=== PATIENT | female | born 1985 | race Caucasian/White ===

== ENCOUNTER → 2016-09-07 | Outpatient (CLI) | payer MEDICAID ==
--- NOTE | 2016-09-07 09:44 | US ---
Transabdominal and Transvaginal Pelvic Ultrasound History: 30-year-old with endometriosis, amenorrhea. Comparison: CT abdomen pelvis March 17, 2005. Findings: Transabdominal: The uterus and ovaries are poorly visualized. The bladder is decompressed. Transvaginal: There is no visible fibroid. Portions of the uterus are difficult to visualize due to u terine positioning and body habitus. The uterus measures 4.8 x 3.1 x 3.2 cm. The visible endometrium is homogeneous and measures 4 mm. The left ovary measures 1.9 x 1.1 x 1.9 cm. The right ovary measure s 2.5 x 1.1 x 2.6 cm. No adnexal masses are identified. Normal arterial blood flow is documented to both ovaries by Doppler ultrasound. There is no free fluid. Impression: Normal pelvic ultrasound.
== END ==
LOC: CIMAGING 08:39
PROVIDERS: ATTEND General Practice
DX: N80.9 Endometriosis, unspecified (principal); N91.2 Amenorrhea, unspecified
CPT/HCPCS: 76856-PO

== ENCOUNTER 2017-01-08 18:59 | Emergency (ER) | payer MEDICAID ==
[2017-01-08 19:15] VITALS: BP 145/83; PULSE 99; RESP 18; TEMP 98.2; O2SAT 97
[2017-01-08] MEDS ORDERED: ACETAMINOPHEN 160 MG/5 ML UDCUP PO ONE (19:30)
[2017-01-08] MEDS ORDERED: ACETAMINOPHEN 500 MG TAB PO ONE (19:35)
--- NOTE | 2017-01-08 19:41 | EDPHY ---
H & P HPI/ROS: CHIEF COMPLAINT: Finger pain History by patient HISTORY OF PRESENT ILLNESS: 31-year-old woman presents complaining of pain in her left index and middle finger tips after falling off a horse sustaining a superficial laceration to her left index finger. She says it is hard to bend at the PIP joint due to pain. Her last tetanus shot was 5 years ago. She denies hitting her head or other pain or injury from the fall. REVIEW OF SYSTEMS: As in HPI, and all other systems reviewed and are negative Smoking Status: Never smoked Physical Exam: General Appearance: Alert and no distress. Eyes: Pupils equal and round no injection. Musculoskeletal: Neck is supple and nontender. Extremities: Positive superficial laceration at radial edge of left index finger nail, positive tenderness to tip of left index finger with mild swelling , cap refill less than 2 seconds, sensation intact, positive tenderness at the tip of right middle finger, mild swelling, cap refill less than 2 seconds, distal sensation intact, decreased range of motion of middle index finger secondary to pain. Skin: No rashes or lesions. Neuro: Awake alert oriented x3, normal gait, no motor sensory deficits Constitutional: Initial Vital Signs Temperature (C) 36.8 C 01/08/17 19:11 Heart Rate 99 01/08/17 19:11 Respiratory Rate 18 01/08/17 19:11 Blood Pressure 145/83 H 01/08/17 19:11 O2 Sat (%) 97 01/08/17 19:11 O2 Delivery Mode Room Air Allergies/Adverse Reactions: gluten [Gluten] Allergy (Verified 11/24/15 17:17) venom-honey bee [bee venom (honey bee)] Allergy (Verified 11/24/15 17:17) EGGS Allergy (Uncoded 11/19/15 16:53) Home Medications: Medication Instructions Recorded Escitalopram Oxalate [Lexapro 10 20 mg PO 04/05/12 MG (RX)] Levothyroxine [Synthroid 50 mcg 50 mcg PO DAILY06 04/05/12 (RX)] Epipen 0.3 MG (RX) 07/25/13 Tramadol HCl PRN 11/19/15 Ortho Tri-Cyclen 28 Tablet 01/08/17 MDM/Departure - MDM Imaging: I viewed and interpreted images myself ED Course/Re-evaluation: Patient presents with pain in the tips of her left index and middle finger and superficial laceration to her left index finger nail after falling horse. There is no evidence of other significant injury. X-ray showed no evidence of fracture. The laceration is nonsuturable. Patient was given Tylenol for pain. I recommend ice, ibuprofen and Tylenol as needed. We discussed wound care and signs and symptoms of infection. - Depart Disposition: Home, Routine, Self-Care Clinical Impression: Contusion, fingers Qualifiers: Encounter type: initial encounter Finger: middle finger Damage to nail status: without damage Laterality: left Qualified Code(s): S60.032A - Contusion of left middle finger without damage to nail, initial encounter Superficial laceration of hand Qualifiers: Encounter type: initial encounter Laterality: left Qualified Code(s): S61.412A - Laceration without foreign body of left hand, initial encounter Condition: Good Instructions: Contusion in Adults (ED), Finger Laceration (ED) Additional Instructions: You were seen by Dr. Gloria Goss today. Return for any worsening or new concerns. Referrals: Zahida Daniel, [employer] [Primary Care Provider] - As per Instructions
== END 2017-01-08 20:00 | disposition home or self-care (01) ==
LOC: CED 18:59
DX: S61.412A Laceration without foreign body of left hand, initial encounter (principal); S60.032A Contusion of left middle finger without damage to nail, initial encounter; V80.010A Animal-rider injured by fall from or being thrown from horse in noncollision accident, initial encounter
CPT/HCPCS: 73140-PO